=== PATIENT | male | born 1970 | race African-American/Black ===

== ENCOUNTER 2023-12-14 12:00 | Inpatient (IN) | payer MEDICAID ==
[~2023-12-14] VITALS: Ht 175.3 cm; Wt 116.2 kg
[2023-12-14 12:52] VITALS: PULSE 127; RESP 20; O2SAT 97
[2023-12-14] MEDS: methylPREDNISolone SOD SUCC 125 MG/2 ML VL IV ONE (12:53)
[2023-12-14] MEDS: FUROSEMIDE 40 MG/4 ML VIAL IV ONE (12:56)
[2023-12-14] MEDS: NITROGLYCERIN 0.4 MG SL TAB SL ONE (13:06)
[2023-12-14 13:07] LABS: Basophils # (auto) 0 10 ^3/uL (0-0.2); Basophils % (auto) 0.3 % (0.0-2.0); Eosinophils # (auto) 0.2 10 ^3/uL (0-0.8); Eosinophils % (auto) 2.3 % (0.0-7.0); Hematocrit 38.2 % (41.0-53.0); Hemoglobin 11.5 g/dL (13.5-17.5); Mean Corpuscular Hemoglobin 25.9 pg (28.0-32.0); Mean Corpuscular Hgb Conc. 30.2 g/dL (32.0-36.0); Mean Corpuscular Volume 85.7 fL (80.0-100.0); Monocytes # (auto) 0.5 10 ^3/uL (0-1.3); Monocytes % (auto) 6.4 % (0.0-12.0); Nucleated Red Blood Cells % 0.1 %; Red Blood Cells 4.46 10^6/uL (4.5-5.90); White Blood Cell 7.7 10^3/uL (4.4-10.8)
[2023-12-14 13:43] LABS: Urine Bacteria FEW /hpf (None Seen); Urine Blood 1+ /uL (Negative); Urine Clarity Clear (Clear); Urine Color Yellow (Yellow); Urine Protein, UAD 3+ (Negative); Urine Specific Gravity 1.025 (1.001-1.035); Urine Urobilinogen Normal (Negative); Urine WBC 3 /hpf (0 - 3); Urine pH 6.5 (5.0-8.0)
[2023-12-14 13:45] LABS: Alanine Aminotransferase 22 U/L (7-40); Albumin 3.7 g/dL (3.2-4.8); Alkaline Phosphatase 86 U/L (46-116); Anion Gap 3 (5-15); Aspartate Aminotransferase 22 U/L (13-40); BUN/Creatinine Ratio 14.7 (10.0-20.0); Bilirubin, Total 1.5 mg/dL (0.2-1.0); Blood Urea Nitrogen 16 mg/dL (9-23); Calcium 9.3 mg/dL (8.5-10.1); Carbon Dioxide 37 mmol/L (20-30); Chloride 101 mmol/L (98-107); Glucose 100 mg/dL (74-106); Potassium 4.4 mmol/L (3.5-5.1); Sodium 141 mmol/L (136-145)
[2023-12-14] MEDS: METOPROLOL TARTRATE 1MG/1ML-5ML VIAL IV ONE (14:07)
[2023-12-14 14:18] LABS: Magnesium 1.6 mg/dL (1.6-2.6)
[2023-12-14] MEDS ORDERED: ACETAMINOPHEN 325 MG TAB PO PRN (14:30)
[2023-12-14] MEDS ORDERED: ONDANSETRON HCL 4 MG/2 ML VIAL IV PRN (14:30)
[2023-12-14] MEDS ORDERED: NITROGLYCERIN 0.4 MG SL TAB SL PRN (14:30)
[2023-12-14] MEDS ORDERED: MORPHINE SULFATE INJ 2 MG/ml SYRG IV PRN (14:30)
[2023-12-14] MEDS ORDERED: METF-370 PO (14:42)
[2023-12-14] MEDS ORDERED: APIX5TAB PO (14:42)
[2023-12-14] MEDS ORDERED: UMEC1AER PO (14:42)
[2023-12-14] MEDS ORDERED: FURO40TA4 PO (14:42)
[2023-12-14] MEDS ORDERED: MET50T PO (14:42)
[2023-12-14] MEDS ORDERED: AMIO200T13 PO (14:42)
[2023-12-14] MEDS ORDERED: SACU1TAB PO (14:42)
[2023-12-14] MEDS ORDERED: GABA-1250 PO (14:42)
[2023-12-14] MEDS ORDERED: DILT1TAB6 PO (14:42)
[2023-12-14] MEDS ORDERED: DEXTROSE (50%) 50ML SYRG IV PRN (14:45)
[2023-12-14] MEDS ORDERED: ALBUTEROL SULF 2.5 MG/0.5ML(0.5%) NEB SOLN NEB PRN (15:00)
[2023-12-14] MEDS ORDERED: IPRATROPIUM BROM 0.5 MG/2.5ML INH SOL NEB PRN (15:00)
[2023-12-14 16:04] VITALS: BP 158/101; PULSE 76; RESP 20; TEMP 98.2; O2SAT 96
[2023-12-14 16:04] LABS: COVID19 ANTIGEN SOFIA FIA NEGATIVE (NEGATIVE)
[2023-12-14] MEDS ORDERED: hydrALAZINE HCL 20 MG/ML VL IV PRN (16:30)
[2023-12-14 16:39] LABS: Triglycerides 67 mg/dL (< 150)
[2023-12-14 16:40] LABS: LDL Cholesterol 83 mg/dL (< 100)
[2023-12-14 16:41] LABS: Cholesterol 153 mg/dL (< 200); HDL Cholesterol 57 mg/dL (40-59)
[2023-12-14] MEDS: ACCU-CHEK COMFORT CURVE STRIP VI SCH (16:55)
[2023-12-14] MEDS: InsuLIN REG 1unit/0.01ml Soln (100units/ml) SC SCH ×2 (16:56→21:55)
[2023-12-14] MEDS: FUROSEMIDE 40 MG/4 ML VIAL IV SCH (16:59)
[2023-12-14 18:00] LABS: Amphetamine Screen, Urine Neg (NEGATIVE); Barbiturate Scree,Urine Neg (NEGATIVE); Benzodiazephine Screen, Urine Neg (NEGATIVE); Cannabinoid Screen, Urine Pos (NEGATIVE); Cocaine Screen, Urine Neg (NEGATIVE); Opiate Scree,Urine Neg (NEGATIVE); Phencyclidine Screen, Urine Neg (NEGATIVE)
[2023-12-14 18:20] VITALS: BP 157/97; PULSE 115; O2SAT 99
[2023-12-14 19:30] VITALS: PULSE 119; RESP 13; O2SAT 100
[2023-12-14 20:00] VITALS: PULSE 104
[2023-12-14 20:25] VITALS: BP 142/70; PULSE 114; O2SAT 98
[2023-12-14] MEDS ORDERED: APIXABAN 5 MG TAB PO SCH (22:00)
[2023-12-14] MEDS: ATORVASTATIN 20 MG TAB PO SCH (22:13)
[2023-12-14] MEDS: methylPREDNISolone SOD SUCC 40 MG/ML VL IV SCH (22:13)
[2023-12-14] MEDS: GABAPENTIN 300 MG CAP PO SCH (22:13)
[2023-12-14] MEDS: METOPROLOL TARTRATE 50 MG TAB PO SCH (22:13)
[2023-12-14] MEDS: ENOXAPARIN SOD 120 MG/0.8 ML SYRINGE SC SCH (22:14)
[2023-12-14] MEDS: SODIUM CHLOR 0.9% PF (SALINE LOCK) 10ML VIAL/SYR IV SCH (22:14)
[2023-12-15] VITALS (9 sets, daily range): BP systolic 106–144; BP diastolic 55–77; PULSE 53–104; RESP 18–24; TEMP 97.2–97.6; O2SAT 91–99
[2023-12-15 07:10] LABS: Basophils # (auto) 0 10 ^3/uL (0-0.2); Eosinophils # (auto) 0 10 ^3/uL (0-0.8); Lymphocytes # (auto) 0.4 10 ^3/uL (0.4-5.4); Mean Corpuscular Hgb Conc. 30.7 g/dL (32.0-36.0); Monocytes # (auto) 0.1 10 ^3/uL (0-1.3); White Blood Cell 5.1 10^3/uL (4.4-10.8)
[2023-12-15 07:15] LABS: Alanine Aminotransferase 17 U/L (7-40); Albumin 3.7 g/dL (3.2-4.8); Alkaline Phosphatase 78 U/L (46-116); Anion Gap 5 (5-15); Aspartate Aminotransferase 24 U/L (13-40); BUN/Creatinine Ratio 11.7 (10.0-20.0); Bilirubin, Total 0.9 mg/dL (0.2-1.0); Blood Urea Nitrogen 18 mg/dL (9-23); Carbon Dioxide 33 mmol/L (20-30); Chloride 100 mmol/L (98-107); Potassium 4.7 mmol/L (3.5-5.1); Sodium 138 mmol/L (136-145); Total Protein 6.1 g/dL (5.7-8.2)
[2023-12-15 07:16] LABS: Hematocrit 36.6 % (41.0-53.0); Hemoglobin 11.2 g/dL (13.5-17.5); Lymphocytes % (auto) 7.3 % (10.0-50.0); Mean Corpuscular Hemoglobin 26.1 pg (28.0-32.0); Monocytes % (auto) 2.6 % (0.0-12.0); Neutrophils # (auto) 4.6 10 ^3/uL (1.6-8.6); Neutrophils % (auto) 90.1 % (37.0-80.0); Nucleated Red Blood Cells % 0.1 %; Red Blood Cells 4.31 10^6/uL (4.5-5.90)
[2023-12-15 07:21] LABS: Glucose 200 mg/dL (74-106)
[2023-12-15 07:40] LABS: INR 1.34 (0.9-1.15); Partial Thromboplastin Time 35.3 SEC (24.5-34.5); Prothrombin Time 13.8 sec (9.3-11.8)
[2023-12-15] MEDS: UMECLIDINIUM VILANTEROL PO SCH (10:00)
[2023-12-15] MEDS ORDERED: dilTIAZem HCL 180MG ER CAP PO SCH (10:00)
[2023-12-15] MEDS: SACUBITRIL-VALSARTAN 24mg/26mg TAB PO SCH (10:03)
[2023-12-15] MEDS: AMIODARONE HCL 200 MG TAB PO SCH (10:04)
[2023-12-15] MEDS: MAGNESIUM SULFATE 1GM/100ML 100 ML IV SCH (10:28)
[2023-12-15] MEDS: FUROSEMIDE INJECTION 100 MG in D5W 5% 100 ML IV SCH (10:41)
[2023-12-15] MEDS: metOLazone 5 MG TAB PO SCH (14:18)
[2023-12-16] VITALS (12 sets, daily range): BP systolic 100–127; BP diastolic 70–95; PULSE 63–105; RESP 18–20; TEMP 97.3–98.3; O2SAT 91–100
[2023-12-16 07:09] LABS: Basophils # (auto) 0 10 ^3/uL (0-0.2); Eosinophils # (auto) 0 10 ^3/uL (0-0.8); Hemoglobin 11.7 g/dL (13.5-17.5); Lymphocytes # (auto) 0.6 10 ^3/uL (0.4-5.4); Monocytes # (auto) 0.6 10 ^3/uL (0-1.3); Nucleated Red Blood Cells % 0.1 %
[2023-12-16 07:10] LABS: Chloride 98 mmol/L (98-107); Potassium 4.8 mmol/L (3.5-5.1); Sodium 138 mmol/L (136-145)
[2023-12-16 07:11] LABS: Anion Gap 7 (5-15); Calcium 9.1 mg/dL (8.7-10.4); Carbon Dioxide 33 mmol/L (20-30); Eosinophils % (auto) 0.1 % (0.0-7.0); Hematocrit 37.9 % (41.0-53.0); Mean Corpuscular Hemoglobin 26.4 pg (28.0-32.0); Mean Corpuscular Hgb Conc. 30.8 g/dL (32.0-36.0); Mean Corpuscular Volume 85.6 fL (80.0-100.0); Monocytes % (auto) 5.4 % (0.0-12.0); Neutrophils # (auto) 9.3 10 ^3/uL (1.6-8.6); Neutrophils % (auto) 88.5 % (37.0-80.0); Red Blood Cells 4.43 10^6/uL (4.5-5.90); Red Cell Distribution Width 16.8 % (11.8-14.3); White Blood Cell 10.6 10^3/uL (4.4-10.8)
[2023-12-16 07:16] LABS: BUN/Creatinine Ratio 15.9 (10.0-20.0); Glucose 127 mg/dL (74-106); Magnesium 2.1 mg/dL (1.6-2.6)
[2023-12-16 07:17] LABS: Blood Urea Nitrogen 27 mg/dL (9-23)
[2023-12-16] MEDS ORDERED: VANCOMYCIN PER PHARMACY 0 MG IV SCH (08:00)
[2023-12-16] MEDS: VANCOMYCIN 1GM/200ML 200 ML IV ONE (08:01)
[2023-12-16] MEDS: methylPREDNISolone SOD SUCC 40 MG/ML VL IV SCH (10:02)
[2023-12-16] MEDS: ENOXAPARIN SOD 120 MG/0.8 ML SYRINGE SC SCH (10:25)
[2023-12-16] MEDS: EMPAGLIFLOZIN 10 MG TAB PO SCH (10:25)
[2023-12-16] MEDS: TORSEMIDE 20 MG TAB PO SCH (13:54)
[2023-12-16] MEDS: CLINDAMYCIN HCL 150 MG CAP PO SCH (14:32)
[2023-12-16] MEDS ORDERED: VANCOMYCIN 1GM/200ML 200 ML IV SCH (22:00)
[2023-12-17] VITALS (12 sets, daily range): BP systolic 107–138; BP diastolic 65–99; PULSE 56–106; RESP 16–91; TEMP 97.5–98.4; O2SAT 90–100
[2023-12-17 09:02] LABS: Basophils # (auto) 0 10 ^3/uL (0-0.2); Eosinophils # (auto) 0 10 ^3/uL (0-0.8); Eosinophils % (auto) 0.1 % (0.0-7.0); Hemoglobin 12.1 g/dL (13.5-17.5); Lymphocytes # (auto) 0.7 10 ^3/uL (0.4-5.4); Mean Corpuscular Hgb Conc. 30.3 g/dL (32.0-36.0); Nucleated Red Blood Cells % 0.2 %; White Blood Cell 9.1 10^3/uL (4.4-10.8)
[2023-12-17 09:04] LABS: Basophils % (auto) 0.1 % (0.0-2.0); Hematocrit 39.9 % (41.0-53.0); Lymphocytes % (auto) 7.8 % (10.0-50.0); Mean Corpuscular Volume 86.1 fL (80.0-100.0); Monocytes # (auto) 0.5 10 ^3/uL (0-1.3); Monocytes % (auto) 5.3 % (0.0-12.0); Neutrophils # (auto) 7.9 10 ^3/uL (1.6-8.6); Neutrophils % (auto) 86.7 % (37.0-80.0); Red Blood Cells 4.64 10^6/uL (4.5-5.90)
[2023-12-17 09:18] LABS: Chloride 95 mmol/L (98-107); Potassium 4.4 mmol/L (3.5-5.1); Sodium 139 mmol/L (136-145)
[2023-12-17 09:24] LABS: BUN/Creatinine Ratio 24.2 (10.0-20.0); Glucose 142 mg/dL (74-106)
[2023-12-17] MEDS: FLORASTOR (S. BOULARDII) 250 MG CAP PO SCH (09:33)
[2023-12-17 09:41] LABS: Blood Urea Nitrogen 43 mg/dL (9-23)
[2023-12-17 09:44] LABS: Carbon Dioxide > 40 mmol/L (20-30)
[2023-12-17] MEDS ORDERED: methylPREDNISolone SOD SUCC 125 MG/2 ML VL IV ONE (14:15)
[2023-12-17 16:05] LABS: Chloride 95 mmol/L (98-107); Potassium 4.6 mmol/L (3.5-5.1); Sodium 136 mmol/L (136-145)
[2023-12-17 16:06] LABS: Calcium 9.4 mg/dL (8.7-10.4)
[2023-12-17 16:11] LABS: BUN/Creatinine Ratio 16.4 (10.0-20.0); Glucose 172 mg/dL (74-106)
[2023-12-17 16:13] LABS: Anion Gap 0.99999 (5-15); Blood Urea Nitrogen 32 mg/dL (9-23)
[2023-12-17 16:15] LABS: Carbon Dioxide > 40 mmol/L (20-30)
[2023-12-17 16:36] LABS: Base Excess 10.1 mmol/L (-2.0-2.0)
[2023-12-17] MEDS: BUDESONIDE (INHALATION) 0.5 MG/2 ML NEB NEB SCH (19:29)
[2023-12-17] MEDS: ALBUTEROL SULF 2.5 MG/0.5ML(0.5%) NEB SOLN NEB SCH (19:29)
[2023-12-17] MEDS: IPRATROPIUM BROM 0.5 MG/2.5ML INH SOL NEB SCH (19:30)
[2023-12-17] MEDS: methylPREDNISolone SOD SUCC 40 MG/ML VL IV SCH (22:02)
[2023-12-17] MEDS: HYDROcodone-ACET 5/325MG TAB PO PRN (22:03)
[2023-12-18] VITALS (17 sets, daily range): BP systolic 98–167; BP diastolic 61–101; PULSE 71–121; RESP 17–96; TEMP 97.3–98.1; O2SAT 92–100
[2023-12-18] MEDS: DOCUSATE SOD 100 MG CAP PO PRN (10:17)
[2023-12-18 11:34] LABS: Hematocrit 41.5 % (41.0-53.0); Hemoglobin 12.8 g/dL (13.5-17.5); Mean Corpuscular Hemoglobin 25.9 pg (28.0-32.0); Mean Corpuscular Hgb Conc. 30.9 g/dL (32.0-36.0); Mean Corpuscular Volume 83.7 fL (80.0-100.0); Red Blood Cells 4.96 10^6/uL (4.5-5.90); Red Cell Distribution Width 16.6 % (11.8-14.3); White Blood Cell 12.4 10^3/uL (4.4-10.8)
[2023-12-18 11:48] LABS: Alanine Aminotransferase 22 U/L (7-40); Alkaline Phosphatase 76 U/L (46-116); Aspartate Aminotransferase 21 U/L (13-40); BUN/Creatinine Ratio 19.2 (10.0-20.0); Blood Urea Nitrogen 41 mg/dL (9-23); Calcium 9.6 mg/dL (8.5-10.1); Chloride 94 mmol/L (98-107); Glucose 199 mg/dL (74-106); Potassium 4.6 mmol/L (3.5-5.1); Sodium 138 mmol/L (136-145)
[2023-12-18 11:49] LABS: Bilirubin, Total 0.6 mg/dL (0.2-1.0)
[2023-12-18 11:59] LABS: Anion Gap 3.99999 (5-15)
[2023-12-18 12:00] LABS: Carbon Dioxide > 40 mmol/L (20-30)
[2023-12-18 12:14] LABS: Band Neutrophils % (manual) 0; Basophils % (manual) 0 (0.0-2.0); Blast Cells 0; Eosinophils % (manual) 0 (0-7); Metamyelocytes % 0; Myelocytes % 0; Promyelocytes % 0; Reactive Lymphocytes 0
[2023-12-18 12:28] LABS: Lymphocytes % (manual) 3 (10.0-50.0); Monocytes % (manual) 5 (0-12)
[2023-12-18 12:29] LABS: Platelet Estimate Adequate
[2023-12-18] MEDS: APIXABAN 5 MG TAB PO SCH (22:27)
[2023-12-19] VITALS (16 sets, daily range): BP systolic 90–138; BP diastolic 56–92; PULSE 71–116; RESP 16–22; TEMP 97.3–98.5; O2SAT 90–100
[2023-12-19 07:38] LABS: Basophils # (auto) 0 10 ^3/uL (0-0.2); Eosinophils # (auto) 0 10 ^3/uL (0-0.8); Lymphocytes # (auto) 0.4 10 ^3/uL (0.4-5.4); Monocytes # (auto) 0.4 10 ^3/uL (0-1.3); Neutrophils # (auto) 7.2 10 ^3/uL (1.6-8.6)
[2023-12-19 07:41] LABS: Hematocrit 40.9 % (41.0-53.0); Hemoglobin 12.7 g/dL (13.5-17.5); Lymphocytes % (auto) 4.7 % (10.0-50.0); Mean Corpuscular Hgb Conc. 30.9 g/dL (32.0-36.0); Monocytes % (auto) 5.1 % (0.0-12.0); Neutrophils % (auto) 90.2 % (37.0-80.0); Nucleated Red Blood Cells % 0.2 %; Red Blood Cells 4.87 10^6/uL (4.5-5.90); Red Cell Distribution Width 16.4 % (11.8-14.3)
[2023-12-19 08:21] LABS: Chloride 93 mmol/L (98-107); Potassium 4.3 mmol/L (3.5-5.1); Sodium 140 mmol/L (136-145)
[2023-12-19 08:22] LABS: Base Excess 17.6 mmol/L (-2.0-2.0)
[2023-12-19 08:22] LABS: Anion Gap 8 (5-15); Calcium 9.4 mg/dL (8.5-10.1); Carbon Dioxide 39 mmol/L (20-30)
[2023-12-19 08:27] LABS: BUN/Creatinine Ratio 18.3 (10.0-20.0); Blood Urea Nitrogen 36 mg/dL (9-23); Glucose 197 mg/dL (74-106)
[2023-12-19] MEDS: CHOLECALCIFEROL (VITD3) 1,000UNIT=25mCg TAB PO SCH (10:01)
[2023-12-20] VITALS (20 sets, daily range): BP systolic 96–120; BP diastolic 66–91; PULSE 55–116; RESP 16–22; TEMP 97.4–99.6; O2SAT 92–100
[2023-12-20 06:17] LABS: Basophils # (auto) 0 10 ^3/uL (0-0.2); Eosinophils # (auto) 0 10 ^3/uL (0-0.8); Hematocrit 41.8 % (41.0-53.0); Lymphocytes # (auto) 0.4 10 ^3/uL (0.4-5.4); Lymphocytes % (auto) 4.4 % (10.0-50.0); Mean Corpuscular Hemoglobin 25.8 pg (28.0-32.0); Monocytes # (auto) 0.3 10 ^3/uL (0-1.3); Monocytes % (auto) 3.3 % (0.0-12.0); Neutrophils # (auto) 7.9 10 ^3/uL (1.6-8.6); Neutrophils % (auto) 92.3 % (37.0-80.0); Red Blood Cells 5.03 10^6/uL (4.5-5.90); Red Cell Distribution Width 16.3 % (11.8-14.3); White Blood Cell 8.5 10^3/uL (4.4-10.8)
[2023-12-20 06:50] LABS: Chloride 93 mmol/L (98-107); Potassium 4.7 mmol/L (3.5-5.1); Sodium 140 mmol/L (136-145)
[2023-12-20 06:52] LABS: Calcium 9.9 mg/dL (8.7-10.4)
[2023-12-20 06:56] LABS: Glucose 170 mg/dL (74-106)
[2023-12-20 06:57] LABS: BUN/Creatinine Ratio 30.1 (10.0-20.0)
[2023-12-20 07:24] LABS: Anion Gap 6.99999 (5-15); Blood Urea Nitrogen 53 mg/dL (9-23); Carbon Dioxide > 40 mmol/L (20-30)
[2023-12-20 08:29] LABS: Base Excess 17.7 mmol/L (-2.0-2.0)
[2023-12-20] MEDS: TORSEMIDE 20 MG TAB PO SCH (12:15)
[2023-12-21] VITALS (17 sets, daily range): BP systolic 97–155; BP diastolic 46–107; PULSE 57–127; RESP 16–24; TEMP 97.5–98.4; O2SAT 95–100
[2023-12-21 05:51] LABS: Chloride 87 mmol/L (98-107); Potassium 4.8 mmol/L (3.5-5.1); Sodium 137 mmol/L (136-145)
[2023-12-21 05:52] LABS: Basophils # (auto) 0 10 ^3/uL (0-0.2); Basophils % (auto) 0.2 % (0.0-2.0); Calcium 9.8 mg/dL (8.5-10.1); Eosinophils # (auto) 0.2 10 ^3/uL (0-0.8); Eosinophils % (auto) 1.6 % (0.0-7.0); Hematocrit 44.8 % (41.0-53.0); Hemoglobin 13.6 g/dL (13.5-17.5); Lymphocytes # (auto) 0.8 10 ^3/uL (0.4-5.4); Lymphocytes % (auto) 6.5 % (10.0-50.0); Mean Corpuscular Hemoglobin 25.9 pg (28.0-32.0); Mean Corpuscular Hgb Conc. 30.3 g/dL (32.0-36.0); Mean Corpuscular Volume 85.4 fL (80.0-100.0); Monocytes # (auto) 0.5 10 ^3/uL (0-1.3); Monocytes % (auto) 3.9 % (0.0-12.0); Neutrophils # (auto) 10.1 10 ^3/uL (1.6-8.6); Neutrophils % (auto) 87.8 % (37.0-80.0); Nucleated Red Blood Cells % 0.2 %; Red Blood Cells 5.24 10^6/uL (4.5-5.90); Red Cell Distribution Width 16.9 % (11.8-14.3); White Blood Cell 11.5 10^3/uL (4.4-10.8)
[2023-12-21 05:57] LABS: BUN/Creatinine Ratio 26.8 (10.0-20.0); Blood Urea Nitrogen 55 mg/dL (9-23); Glucose 139 mg/dL (74-106)
[2023-12-21 06:46] LABS: Anion Gap 9.99999 (5-15)
[2023-12-21 06:48] LABS: Carbon Dioxide > 40 mmol/L (20-30)
[2023-12-21] MEDS: acetaZOLAMIDE SODIUM 500 MG VL IV SCH ×2 (10:07→21:48)
[2023-12-21 15:05] LABS: Base Excess 16.5 mmol/L (-2.0-2.0)
[2023-12-21] MEDS ORDERED: FUROSEMIDE 20 MG/2 ML VIAL IV SCH (18:00)
[2023-12-22] VITALS (13 sets, daily range): BP systolic 104–134; BP diastolic 76–96; PULSE 45–144; RESP 15–20; TEMP 97.6–98.3; O2SAT 96–100
[2023-12-22 05:59] LABS: Chloride 91 mmol/L (98-107); Potassium 3.9 mmol/L (3.5-5.1); Sodium 134 mmol/L (136-145)
[2023-12-22 06:00] LABS: Calcium 9.6 mg/dL (8.7-10.4)
[2023-12-22 06:05] LABS: Blood Urea Nitrogen 61 mg/dL (9-23); Glucose 213 mg/dL (74-106)
[2023-12-22 06:06] LABS: Magnesium 1.9 mg/dL (1.6-2.6)
[2023-12-22 06:25] LABS: Anion Gap 2.99999 (5-15)
[2023-12-22 06:26] LABS: Carbon Dioxide > 40 mmol/L (20-30)
[2023-12-22] MEDS: TORSEMIDE 20 MG TAB PO SCH (10:23)
[2023-12-22] MEDS: acetaZOLAMIDE SODIUM 500 MG VL IV SCH (10:24)
[2023-12-22] MEDS ORDERED: ATOR20TA50 PO (13:14)
[2023-12-22] MEDS ORDERED: TORS20TA19 PO (13:14)
[2023-12-23] VITALS (15 sets, daily range): BP systolic 99–130; BP diastolic 73–94; PULSE 71–103; RESP 18–20; TEMP 97.8–98.1; O2SAT 93–100
[2023-12-23 05:48] LABS: Chloride 92 mmol/L (98-107); Potassium 3.7 mmol/L (3.5-5.1); Sodium 134 mmol/L (136-145)
[2023-12-23 05:49] LABS: Calcium 9.6 mg/dL (8.7-10.4)
[2023-12-23 05:54] LABS: BUN/Creatinine Ratio 30.8 (10.0-20.0); Blood Urea Nitrogen 57 mg/dL (9-23); Glucose 183 mg/dL (74-106)
[2023-12-23 06:18] LABS: Anion Gap 1.99999 (5-15); Carbon Dioxide > 40 mmol/L (20-30)
== END 2023-12-23 18:36 | disposition home health service (06) | DRG 133 ==
LOC: EDBD 12:00 → ER 12:00 → TELE 14:42 → TELE-WESTW 12-15 09:11
PROVIDERS: ADMIT Nurse Practitioner Family; ATTEND Nurse Practitioner Acute Care
PROC: 5A09357 Assistance with Respiratory Ventilation, Less than 24 Consecutive Hours, Continuous Positive Airway Pressure (ICD-10-PCS; 2023-12-14)
PROC: 05HF33Z Insertion of Infusion Device into Left Cephalic Vein, Percutaneous Approach (ICD-10-PCS; principal; 2023-12-15)
PROC: B54NZZA Ultrasonography of Left Upper Extremity Veins, Guidance (ICD-10-PCS; 2023-12-15)
PROC: 5A09357 Assistance with Respiratory Ventilation, Less than 24 Consecutive Hours, Continuous Positive Airway Pressure (ICD-10-PCS; 2023-12-18)
PROC: 5A09357 Assistance with Respiratory Ventilation, Less than 24 Consecutive Hours, Continuous Positive Airway Pressure (ICD-10-PCS; 2023-12-19)
PROC: 5A09357 Assistance with Respiratory Ventilation, Less than 24 Consecutive Hours, Continuous Positive Airway Pressure (ICD-10-PCS; 2023-12-20)
PROC: 5A09357 Assistance with Respiratory Ventilation, Less than 24 Consecutive Hours, Continuous Positive Airway Pressure (ICD-10-PCS; 2023-12-23)
DX: J96.21 Acute and chronic respiratory failure with hypoxia (principal); N17.0 Acute kidney failure with tubular necrosis; I50.43 Acute on chronic combined systolic (congestive) and diastolic (congestive) heart failure; R78.81 Bacteremia; E87.3 Alkalosis; D63.1 Anemia in chronic kidney disease; I48.0 Paroxysmal atrial fibrillation; I16.0 Hypertensive urgency; Z20.822 Contact with and (suspected) exposure to COVID-19; J96.22 Acute and chronic respiratory failure with hypercapnia; I13.0 Hypertensive heart and chronic kidney disease with heart failure and stage 1 through stage 4 chronic kidney disease, or unspecified chronic kidney disease; J44.9 Chronic obstructive pulmonary disease, unspecified; E78.5 Hyperlipidemia, unspecified; E03.9 Hypothyroidism, unspecified; I25.10 Atherosclerotic heart disease of native coronary artery without angina pectoris; E83.42 Hypomagnesemia; I45.10 Unspecified right bundle-branch block; F12.90 Cannabis use, unspecified, uncomplicated; N18.30 Chronic kidney disease, stage 3 unspecified; B96.89 Other specified bacterial agents as the cause of diseases classified elsewhere; E11.22 Type 2 diabetes mellitus with diabetic chronic kidney disease; E66.01 Morbid (severe) obesity due to excess calories; Z99.81 Dependence on supplemental oxygen; Z79.01 Long term (current) use of anticoagulants; Z79.899 Other long term (current) drug therapy; Z82.5 Family history of asthma and other chronic lower respiratory diseases; Z68.37 Body mass index [BMI] 37.0-37.9, adult; Z91.148 Patient's other noncompliance with medication regimen for other reason
CPT/HCPCS: 36415; 36600; 71045; 76775; 80048; 80053; 80061; 80202; 80307; 81001; 82306; 82565; 82805; 82962; 83036; 83605; 83735; 83880; 83970; 84100; 84443; 84484; 84520; 85007; 85025; 85027; 85610; 85730; 86850; 86900; 86901; 87040; 87076; 87426; 93005; 93306; 94640; 94660; 97110; 97116; 97163; 97530; 99291; G0378; J1815; J7060

== ENCOUNTER 2024-01-08 17:34 | Inpatient (IN) | payer MEDICAID ==
[~2024-01-08] VITALS: Ht 175.3 cm; Wt 122.7 kg
[~2024-01-08 17:34] MED LIST: AMIO200T13 PO; APIX5TAB PO; ATOR20TA50 PO; GABA-1250 PO; MET50T PO; METF-370 PO; TORS20TA19 PO; UMEC1AER INH
[2024-01-08 19:40] LABS: Basophils # (auto) 0 10 ^3/uL (0-0.2); Eosinophils # (auto) 0.1 10 ^3/uL (0-0.8); Hemoglobin 11.2 g/dL (13.5-17.5); Mean Corpuscular Hemoglobin 25.8 pg (28.0-32.0); Monocytes # (auto) 0.4 10 ^3/uL (0-1.3)
[2024-01-08 19:42] LABS: Basophils % (auto) 0.4 % (0.0-2.0); Lymphocytes # (auto) 1.2 10 ^3/uL (0.4-5.4); Lymphocytes % (auto) 12.4 % (10.0-50.0); Mean Corpuscular Hgb Conc. 31.2 g/dL (32.0-36.0); Mean Corpuscular Volume 82.7 fL (80.0-100.0); Monocytes % (auto) 4.3 % (0.0-12.0); Neutrophils # (auto) 8.2 10 ^3/uL (1.6-8.6); Neutrophils % (auto) 81.9 % (37.0-80.0); Nucleated Red Blood Cells % 0.1 %; Red Blood Cells 4.35 10^6/uL (4.5-5.90); Red Cell Distribution Width 17.4 % (11.8-14.3)
[2024-01-08 19:54] LABS: Alanine Aminotransferase 20 U/L (7-40); Albumin 3.8 g/dL (3.2-4.8); Alkaline Phosphatase 69 U/L (46-116); Anion Gap 6 (5-15); Aspartate Aminotransferase 14 U/L (13-40); BUN/Creatinine Ratio 18.5 (10.0-20.0); Blood Urea Nitrogen 32 mg/dL (9-23); Calcium 8.5 mg/dL (8.7-10.4); Carbon Dioxide 30 mmol/L (20-30); Chloride 101 mmol/L (98-107); Glucose 110 mg/dL (74-106); INR 1.19 (0.9-1.15); Partial Thromboplastin Time 33.8 SEC (24.5-34.5); Potassium 4.4 mmol/L (3.5-5.1); Prothrombin Time 12.4 sec (9.3-11.8); Sodium 137 mmol/L (136-145)
[2024-01-08 19:55] LABS: Base Excess 0.8 mmol/L (-2.0-2.0)
[2024-01-08 19:55] LABS: Bilirubin, Total 0.8 mg/dL (0.2-1.0); Total Protein 6.4 g/dL (5.7-8.2)
[2024-01-08 19:59] LABS: Lactic Acid w/Reflex 2.3 mmol/L (0.4-2.0)
[2024-01-08 20:17] LABS: Urine Bacteria None Seen /hpf (None Seen)
[2024-01-08 20:34] LABS: Urine Blood Negative /uL (Negative); Urine Clarity Clear (Clear); Urine Color Light-Yellow (Yellow); Urine Hyaline Cast FEW /lpf (0 - 2); Urine Protein, UAD Negative (Negative); Urine Specific Gravity 1.012 (1.001-1.035); Urine Urobilinogen Normal (Negative); Urine WBC 1 /hpf (0 - 3)
[2024-01-08] MEDS: ALBUTEROL SULF 2.5 MG/0.5ML(0.5%) NEB SOLN NEB ONE (22:23)
[2024-01-08] MEDS: IPRATROPIUM BROM 0.5 MG/2.5ML INH SOL NEB ONE (22:24)
[2024-01-08] MEDS: BUDESONIDE (INHALATION) 0.5 MG/2 ML NEB NEB ONE (22:24)
[2024-01-09] VITALS (11 sets, daily range): BP systolic 117–132; BP diastolic 49–75; PULSE 48–97; RESP 18–20; TEMP 97.6–97.9; O2SAT 4–99
[2024-01-09] MEDS ORDERED: ONDANSETRON HCL 4 MG/2 ML VIAL IV PRN (00:45)
[2024-01-09] MEDS ORDERED: DOCUSATE SOD 100 MG CAP PO PRN (00:45)
[2024-01-09] MEDS ORDERED: MORPHINE SULFATE INJ 2 MG/ml SYRG IV PRN (00:45)
[2024-01-09] MEDS ORDERED: NITROGLYCERIN 0.4 MG SL TAB SL PRN (00:45)
[2024-01-09] MEDS: cefTRIAXone 2GM/50ML D5W 50 ML IV ONE (01:07)
[2024-01-09] MEDS: DexAMETHasone SOD PHOS 10MG/1ML VIAL INJ IV ONE (01:18)
[2024-01-09] MEDS: HYDROcodone-ACET 5/325MG TAB PO PRN (01:32)
[2024-01-09] MEDS: AZITHROMYCIN 500MG/ 250ML 250 ML IV ONE (02:34)
[2024-01-09] MEDS: SODIUM CHLOR 0.9% PF (SALINE LOCK) 10ML VIAL/SYR IV SCH (06:00)
[2024-01-09] MEDS: methylPREDNISolone SOD SUCC 40 MG/ML VL IV SCH (06:00)
[2024-01-09 06:09] LABS: Basophils # (auto) 0 10 ^3/uL (0-0.2); Eosinophils # (auto) 0 10 ^3/uL (0-0.8); Eosinophils % (auto) 0.1 % (0.0-7.0); Lymphocytes # (auto) 0.4 10 ^3/uL (0.4-5.4); Lymphocytes % (auto) 4.1 % (10.0-50.0); Mean Corpuscular Volume 82.6 fL (80.0-100.0); Monocytes # (auto) 0.1 10 ^3/uL (0-1.3); Neutrophils % (auto) 94.6 % (37.0-80.0)
[2024-01-09 06:12] LABS: Basophils % (auto) 0.2 % (0.0-2.0); Hematocrit 35.5 % (41.0-53.0); Hemoglobin 11.2 g/dL (13.5-17.5); Mean Corpuscular Hemoglobin 26.2 pg (28.0-32.0); Mean Corpuscular Hgb Conc. 31.7 g/dL (32.0-36.0); Neutrophils # (auto) 8.3 10 ^3/uL (1.6-8.6); Nucleated Red Blood Cells % 0.1 %; Red Cell Distribution Width 17.1 % (11.8-14.3); White Blood Cell 8.7 10^3/uL (4.4-10.8)
[2024-01-09 06:26] LABS: Alanine Aminotransferase 23 U/L (7-40); Alkaline Phosphatase 69 U/L (46-116); Anion Gap 10 (5-15); Aspartate Aminotransferase 18 U/L (13-40); BUN/Creatinine Ratio 19.1 (10.0-20.0); Blood Urea Nitrogen 33 mg/dL (9-23); Calcium 8.1 mg/dL (8.5-10.1); Carbon Dioxide 26 mmol/L (20-30); Chloride 99 mmol/L (98-107); Glucose 205 mg/dL (74-106); Sodium 135 mmol/L (136-145)
[2024-01-09 06:27] LABS: Bilirubin, Total 0.6 mg/dL (0.2-1.0); Total Protein 6.2 g/dL (5.7-8.2)
[2024-01-09] MEDS ORDERED: CARVEDILOL 3.125 MG TAB PO SCH (10:00)
[2024-01-09] MEDS ORDERED: APIXABAN 5 MG TAB PO SCH (10:00)
[2024-01-09] MEDS: APIXABAN 5 MG TAB PO SCH (14:45)
[2024-01-09] MEDS: FAMOTIDINE (10MG/ML) 2ML VL IV SCH (14:45)
[2024-01-09] MEDS: AMIODARONE HCL 200 MG TAB PO SCH (14:50)
[2024-01-09] MEDS: AZITHROMYCIN 500MG/ 250ML 250 ML IV SCH (14:52)
[2024-01-09] MEDS: DOBUTamine 1000MCG/ML 250 ML IV SCH (19:11)
[2024-01-09] MEDS: ATORVASTATIN 20 MG TAB PO SCH (21:36)
[2024-01-09] MEDS ORDERED: ATORVASTATIN 20 MG TAB PO SCH (22:00)
[2024-01-10] VITALS (11 sets, daily range): BP systolic 116–151; BP diastolic 74–91; PULSE 62–112; RESP 16–20; TEMP 97.2–99.1; O2SAT 4–100
[2024-01-10 06:47] LABS: Alanine Aminotransferase 17 U/L (7-40); Albumin 3.6 g/dL (3.2-4.8); Alkaline Phosphatase 59 U/L (46-116); Anion Gap 8 (5-15); BUN/Creatinine Ratio 23.9 (10.0-20.0); Blood Urea Nitrogen 34 mg/dL (9-23); Calcium 8.7 mg/dL (8.7-10.4); Carbon Dioxide 27 mmol/L (20-30); Chloride 99 mmol/L (98-107); Glucose 230 mg/dL (74-106); Potassium 4.9 mmol/L (3.5-5.1); Sodium 134 mmol/L (136-145)
[2024-01-10 06:48] LABS: Aspartate Aminotransferase 11 U/L (13-40); Bilirubin, Total 0.5 mg/dL (0.2-1.0)
[2024-01-10 06:49] LABS: Total Protein 6.1 g/dL (5.7-8.2)
[2024-01-10 06:55] LABS: Basophils # (auto) 0 10 ^3/uL (0-0.2); Eosinophils # (auto) 0 10 ^3/uL (0-0.8); Lymphocytes # (auto) 0.5 10 ^3/uL (0.4-5.4); Monocytes # (auto) 0.1 10 ^3/uL (0-1.3); Neutrophils # (auto) 6.6 10 ^3/uL (1.6-8.6)
[2024-01-10 06:57] LABS: Basophils % (auto) 0.1 % (0.0-2.0); Hematocrit 34.4 % (41.0-53.0); Lymphocytes % (auto) 7.3 % (10.0-50.0); Mean Corpuscular Hemoglobin 25.9 pg (28.0-32.0); Monocytes % (auto) 1.6 % (0.0-12.0); Red Blood Cells 4.25 10^6/uL (4.5-5.90); Red Cell Distribution Width 17.3 % (11.8-14.3); White Blood Cell 7.3 10^3/uL (4.4-10.8)
[2024-01-10] MEDS ORDERED: DEXTROSE (50%) 50ML SYRG IV PRN (15:45)
[2024-01-10] MEDS: ACCU-CHEK COMFORT CURVE STRIP VI SCH (18:19)
[2024-01-10] MEDS: FUROSEMIDE 40 MG/4 ML VIAL IV SCH (18:19)
[2024-01-10] MEDS: InsuLIN REG 1unit/0.01ml Soln (100units/ml) SC SCH ×2 (18:36→22:00)
[2024-01-11] VITALS (11 sets, daily range): BP systolic 111–157; BP diastolic 68–89; PULSE 65–118; RESP 14–20; TEMP 97.4–98.1; O2SAT 93–100
[2024-01-11] MEDS: ACETAMINOPHEN 325 MG TAB PO PRN (00:40)
[2024-01-11] MEDS: DOXYCYCLINE 100 MG TAB/CAP PO SCH (09:14)
[2024-01-11] MEDS: FAMOTIDINE 20 MG TAB PO SCH (09:14)
[2024-01-11 09:40] LABS: Hepatitis B Surface Antigen Negative (Negative)
[2024-01-11 10:02] LABS: Hepatitis C Antibody Negative (Negative)
[2024-01-11 15:14] LABS: Basophils # (auto) 0 10 ^3/uL (0-0.2); Basophils % (auto) 0.1 % (0.0-2.0); Eosinophils # (auto) 0 10 ^3/uL (0-0.8); Lymphocytes # (auto) 0.4 10 ^3/uL (0.4-5.4); Monocytes # (auto) 0.2 10 ^3/uL (0-1.3); Nucleated Red Blood Cells % 0.2 %
[2024-01-11 15:15] LABS: Chloride 97 mmol/L (98-107); Potassium 4.6 mmol/L (3.5-5.1); Sodium 132 mmol/L (136-145)
[2024-01-11 15:16] LABS: Anion Gap 7 (5-15); Calcium 9.2 mg/dL (8.7-10.4); Carbon Dioxide 28 mmol/L (20-30)
[2024-01-11 15:17] LABS: Hematocrit 40.1 % (41.0-53.0); Hemoglobin 12.9 g/dL (13.5-17.5); Lymphocytes % (auto) 5.4 % (10.0-50.0); Mean Corpuscular Hemoglobin 26.4 pg (28.0-32.0); Mean Corpuscular Hgb Conc. 32.1 g/dL (32.0-36.0); Mean Corpuscular Volume 82.1 fL (80.0-100.0); Monocytes % (auto) 2.2 % (0.0-12.0); Neutrophils # (auto) 6.7 10 ^3/uL (1.6-8.6); Neutrophils % (auto) 92.3 % (37.0-80.0); Red Blood Cells 4.88 10^6/uL (4.5-5.90); Red Cell Distribution Width 17.7 % (11.8-14.3); White Blood Cell 7.3 10^3/uL (4.4-10.8)
[2024-01-11 15:21] LABS: BUN/Creatinine Ratio 24.2 (10.0-20.0); Blood Urea Nitrogen 37 mg/dL (9-23); Glucose 329 mg/dL (74-106)
[2024-01-11 15:22] LABS: Magnesium 1.5 mg/dL (1.6-2.6)
[2024-01-11] MEDS: MAGNESIUM SULFATE 1GM/100ML 100 ML IV SCH (17:02)
[2024-01-11] MEDS: METOPROLOL TARTRATE 50 MG TAB PO SCH (21:50)
[2024-01-11 23:37] LABS: Rapid Influenza A Negative (Negative)
[2024-01-11 23:38] LABS: COVID19 ANTIGEN SOFIA FIA NEGATIVE (NEGATIVE); Rapid Influenza B Negative (Negative)
[2024-01-12] VITALS (11 sets, daily range): BP systolic 118–139; BP diastolic 63–97; PULSE 71–114; RESP 16–22; TEMP 97.6–98.1; O2SAT 93–100
[2024-01-12] MEDS: IPRATROPIUM BROM 0.5 MG/2.5ML INH SOL NEB PRN (01:18)
[2024-01-12] MEDS: ALBUTEROL SULF 2.5 MG/0.5ML(0.5%) NEB SOLN NEB PRN (01:18)
[2024-01-12 05:42] LABS: Calcium 9.3 mg/dL (8.7-10.4); Chloride 99 mmol/L (98-107); Sodium 134 mmol/L (136-145)
[2024-01-12 05:43] LABS: Anion Gap 4 (5-15); Carbon Dioxide 31 mmol/L (20-30)
[2024-01-12 05:45] LABS: Basophils # (auto) 0 10 ^3/uL (0-0.2); Basophils % (auto) 0.1 % (0.0-2.0); Eosinophils # (auto) 0 10 ^3/uL (0-0.8); Hemoglobin 11.9 g/dL (13.5-17.5); Lymphocytes # (auto) 0.3 10 ^3/uL (0.4-5.4); Mean Corpuscular Hemoglobin 26.2 pg (28.0-32.0); Monocytes # (auto) 0.2 10 ^3/uL (0-1.3); Neutrophils # (auto) 5.8 10 ^3/uL (1.6-8.6); Red Blood Cells 4.54 10^6/uL (4.5-5.90); Red Cell Distribution Width 17.6 % (11.8-14.3); White Blood Cell 6.3 10^3/uL (4.4-10.8)
[2024-01-12 05:47] LABS: Hematocrit 36.9 % (41.0-53.0); Mean Corpuscular Hgb Conc. 32.2 g/dL (32.0-36.0); Mean Corpuscular Volume 81.2 fL (80.0-100.0); Monocytes % (auto) 2.6 % (0.0-12.0); Neutrophils % (auto) 92.3 % (37.0-80.0); Nucleated Red Blood Cells % 0.1 %
[2024-01-12 05:48] LABS: BUN/Creatinine Ratio 24.2 (10.0-20.0); Blood Urea Nitrogen 36 mg/dL (9-23)
[2024-01-12 05:49] LABS: Magnesium 1.5 mg/dL (1.6-2.6)
[2024-01-12 06:17] LABS: Glucose 219 mg/dL (74-106)
[2024-01-12] MEDS: MAGNESIUM SULFATE 1GM/100ML 100 ML IV SCH (09:33)
[2024-01-13] VITALS (9 sets, daily range): BP systolic 112–137; BP diastolic 67–94; PULSE 76–110; RESP 18–22; TEMP 97.6–98.5; O2SAT 90–100
[2024-01-13 07:06] LABS: Chloride 100 mmol/L (98-107); Potassium 4.7 mmol/L (3.5-5.1); Sodium 135 mmol/L (136-145)
[2024-01-13 07:07] LABS: Anion Gap 5 (5-15); Calcium 9.2 mg/dL (8.5-10.1); Carbon Dioxide 30 mmol/L (20-30)
[2024-01-13 07:12] LABS: BUN/Creatinine Ratio 25.5 (10.0-20.0); Blood Urea Nitrogen 41 mg/dL (9-23); Glucose 238 mg/dL (74-106)
[2024-01-13 07:21] LABS: Basophils # (auto) 0 10 ^3/uL (0-0.2); Eosinophils # (auto) 0 10 ^3/uL (0-0.8); Hematocrit 36.2 % (41.0-53.0); Hemoglobin 11.5 g/dL (13.5-17.5); Lymphocytes # (auto) 0.2 10 ^3/uL (0.4-5.4); Lymphocytes % (auto) 4.1 % (10.0-50.0); Mean Corpuscular Hemoglobin 25.9 pg (28.0-32.0); Mean Corpuscular Hgb Conc. 31.9 g/dL (32.0-36.0); Mean Corpuscular Volume 81.2 fL (80.0-100.0); Monocytes # (auto) 0.2 10 ^3/uL (0-1.3); Monocytes % (auto) 4.1 % (0.0-12.0); Neutrophils # (auto) 5.5 10 ^3/uL (1.6-8.6); Neutrophils % (auto) 91.8 % (37.0-80.0); Nucleated Red Blood Cells % 0.1 %; Red Blood Cells 4.45 10^6/uL (4.5-5.90); Red Cell Distribution Width 17.5 % (11.8-14.3); White Blood Cell 5.9 10^3/uL (4.4-10.8)
[2024-01-13] MEDS ORDERED: DILT1CAP PO (09:07)
[2024-01-13] MEDS ORDERED: SACU1TAB PO (09:07)
[2024-01-13] MEDS ORDERED: CYCL-839 PO (09:07)
[2024-01-13] MEDS ORDERED: HYDR-4795 PO (09:07)
[2024-01-13] MEDS ORDERED: hydrALAZINE HCL 20 MG/ML VL IV PRN (11:45)
== END 2024-01-13 19:45 | disposition home or self-care (01) | DRG 133 ==
LOC: ER 17:34 → TELE 01-09 00:52 → TELE-WESTW 01-09 16:48
PROVIDERS: ADMIT Nurse Practitioner Family; ATTEND Internal Medicine
DX: J96.21 Acute and chronic respiratory failure with hypoxia (principal); N17.0 Acute kidney failure with tubular necrosis; I50.23 Acute on chronic systolic (congestive) heart failure; J15.69 Pneumonia due to other Gram-negative bacteria; I42.8 Other cardiomyopathies; J15.9 Unspecified bacterial pneumonia; I13.0 Hypertensive heart and chronic kidney disease with heart failure and stage 1 through stage 4 chronic kidney disease, or unspecified chronic kidney disease; I48.20 Chronic atrial fibrillation, unspecified; J44.0 Chronic obstructive pulmonary disease with (acute) lower respiratory infection; J44.1 Chronic obstructive pulmonary disease with (acute) exacerbation; E11.22 Type 2 diabetes mellitus with diabetic chronic kidney disease; Z20.822 Contact with and (suspected) exposure to COVID-19; N18.9 Chronic kidney disease, unspecified; E78.5 Hyperlipidemia, unspecified; I45.10 Unspecified right bundle-branch block; E66.9 Obesity, unspecified; Z79.01 Long term (current) use of anticoagulants; Z79.84 Long term (current) use of oral hypoglycemic drugs; Z83.3 Family history of diabetes mellitus; Z79.899 Other long term (current) drug therapy; Z82.5 Family history of asthma and other chronic lower respiratory diseases; Z87.891 Personal history of nicotine dependence; Z99.81 Dependence on supplemental oxygen; Z68.39 Body mass index [BMI] 39.0-39.9, adult
CPT/HCPCS: 36415; 36600; 71045; 80048; 80053; 81001; 82805; 82962; 83605; 83735; 83880; 84443; 84484; 85025; 85379; 85610; 85730; 86803; 87040; 87340; 87426; 87804; 93005; 94640; 96365; 96367; 96375; G0378; J1100; J1815; J3490